=== PATIENT | female | born 1955 | race Caucasian/White ===

== ENCOUNTER 2020-12-26 02:55 | Inpatient (IN) | payer MEDICARE, BC ==
[2020-12-26 04:10] LABS: ALT (SGPT) 26 U/L (8-55); AST (SGOT) 51 U/L (5-34); Albumin 4.1 g/dL (3.4-4.8); Alkaline Phosphatase 112 U/L (40-110); Anion Gap 18 mmol/L (10-20); BUN (Urea Nitrogen) 25 mg/dL (9.8-20.1); Bilirubin, Total 0.6 mg/dL (0.2-1.2); Calc. Creatinine Clearance 0 mL/min (70-130); Calcium 8.8 mg/dL (7.8-10.44); Carbon Dioxide 20 mmol/L (23-31); Chloride 101 mmol/L (98-107); Globulin 3.1 g/dL (2.4-3.5); Glucose 138 mg/dL (80-115); Lipase 505 U/L (8-78); Potassium 4.1 mmol/L (3.5-5.1); Protein, Total 7.2 g/dL (5.8-8.1); Sodium 135 mmol/L (136-145)
[2020-12-26 04:12] LABS: #Basophils 0.1 thou/uL (0.0-0.2); #Eosinphils 0.2 thou/uL (0.0-0.7); #Monocytes 0.6 thou/uL (0.11-0.59); #Neutrophils 5.8 thou/uL (1.40-6.50); %Basophils 0.9 % (0.0-1.0); %Eosinophils 2.2 % (0.0-10.0); %Lymphocytes 23.4 % (21.0-51.0); %Monocytes 6.9 % (0.0-10.0); %Neutrophils 66.6 % (42.0-75.0); Hemoglobin 12.1 g/dL (12.0-16.0); Mean Corpuscular HGB CONC 33.4 g/dL (32.0-36.0); Mean Corpuscular Hemoglobin 30.1 pg (27.0-31.0); Mean Corpuscular Volume 90.2 fL (78.0-98.0); Mean Platelet Volume 8.1 fL (7.4-10.4); Platelet Count 89 thou/uL (130-400); Platelet Morphology Comment Appears Decreased; RBC Distribution Width 13.2 % (11.5-14.5); Red Blood Cell (RBC) Count 4.02 mill/uL (4.20-5.40); White Blood Cell (WBC) Count 8.7 thou/uL (4.8-10.8)
[2020-12-26 04:24] LABS: INR-International Normal Ratio 1.8; PTT 38.8 sec (22.9-36.1); Prothrombin Time 20.9 sec (12.0-14.7)
[2020-12-26 04:50] LABS: D-Dimer Test Greater than 20.00 *mcg/mL (0.27-0.43)
[2020-12-26] MEDS ORDERED: Ondansetron PF 4 MG/2 ML Vial ONE (05:06)
[2020-12-26 05:09] LABS: Digoxin Less than 0.15 ng/mL (0.8-2.0)
[2020-12-26 07:47] LABS: Troponin I Less than 0.010 ng/mL (< 0.028)
[2020-12-26 07:53] LABS: Bilirubin Negative (Negative); Blood, Urine Negative (Negative); Clarity Clear (Clear); Glucose, Urine (Dipstick) Normal (Negative); Ketone, Urine Negative (Negative); Leukocyte Negative Leu/uL (Negative); Nitrite Negative (Negative); Protein, Urine (Dipstick) 20 mg/dL (Neg-Trace); Specific Gravity, Urine 1.042 (1.002-1.036); Urobilinogen Normal mg/dL (Less than 2); pH, Urine 5.5 (5.0-9.0)
[2020-12-26 10:37] LABS: Troponin I 0.012 ng/mL (< 0.028)
[2020-12-26] MEDS ORDERED: Iopamidol 370 76% 100 ML VIAL ONE (13:52)
[2020-12-26 14:36] LABS: SARS-CoV-2 PCR by NAA Not Detected (NotDetected)
[2020-12-26] MEDS ORDERED: HYDROmorphone 0.5 MG/0.5 ML SYRINGE SLOW IVP SCH (16:30)
[2020-12-26] MEDS ORDERED: HYDROmorphone 0.5 MG/0.5 ML SYRINGE ONE (16:40)
[2020-12-26 17:34] LABS: Cardiac Risk 3.8 (Less than 4.5)
[2020-12-26 22:27] VITALS: BMI 43.6
[2020-12-26] MEDS: Morphine 4 MG/ML VIAL SLOW IVP PRN (22:41)
[2020-12-27] MEDS: Morphine 4 MG/ML VIAL SLOW IVP PRN ×2 (03:59→12:34)
[2020-12-27 05:15] LABS: Cardiac Risk 3.6 (Less than 4.5)
[2020-12-27] MEDS ORDERED: Aspirin Chewable 81 MG TAB PO SCH (09:00)
[2020-12-27] MEDS ORDERED: Regadenoson 0.4 MG/5 ML SYRINGE ONE (14:48)
[2020-12-27] MEDS ORDERED: Apixaban 5 MG TAB PO SCH (16:00)
[2020-12-27 16:43] VITALS: BP 120/57; TEMP 98.3
[2020-12-27] MEDS ORDERED: Warfarin Sodium 10 MG TAB PO SCH (17:00)
[2020-12-27] MEDS ORDERED: Enoxaparin Sodium 120 MG/0.8 ML SYRINGE SC SCH (21:00)
[2020-12-28] MEDS ORDERED: Ascorbic Acid 500 mg Chewable Tablet PO SCH (09:00)
[2020-12-28] MEDS ORDERED: Warfarin Sodium 10 MG TAB PO SCH (09:00)
[2020-12-28] MEDS ORDERED: Non-Formulary Item 1 EACH (Ascorbic Acid [Vitamin C] 500 MG Capsule) PO SCH (09:00)
[2020-12-28] MEDS ORDERED: Lisinopril 10 MG TAB PO SCH (09:00)
[2020-12-28] MEDS ORDERED: Warfarin Sodium 7.5 MG TAB PO SCH (17:00)
== END 2020-12-27 18:00 | disposition home or self-care (01) | DRG 313 ==
LOC: ERS 02:55 → ERHOLD 07:00 → 2NO 21:22
PROVIDERS: ADMIT Internal Medicine; ATTEND Internal Medicine
DX: R07.89 Other chest pain (principal); Z68.41 Body mass index [BMI] 40.0-44.9, adult; I82.529 Chronic embolism and thrombosis of unspecified iliac vein; E66.01 Morbid (severe) obesity due to excess calories; I10 Essential (primary) hypertension; G62.9 Polyneuropathy, unspecified; K58.9 Irritable bowel syndrome, unspecified; Z20.822 Contact with and (suspected) exposure to COVID-19; Z88.0 Allergy status to penicillin; Z90.710 Acquired absence of both cervix and uterus; Z90.49 Acquired absence of other specified parts of digestive tract; Z90.89 Acquired absence of other organs; Z86.711 Personal history of pulmonary embolism; Z79.01 Long term (current) use of anticoagulants
CPT/HCPCS: 36415; 71045; 71275; 74177; 78452; 80053; 80061; 80162; 81003; 83605; 83690; 84484; 85025; 85379; 85610; 85730; 87635; 93005; 93017; 93970; 94760; 96374; A9500; J1170; J2270; J2405; J2785; Q9967; U0003; U0005